=== PATIENT | female | born 1950 ===

== ENCOUNTER 2020-05-23 13:16 | Observation (INO) ==
[~2020-05-23 13:16] MED LIST: Buffered Lidocaine 1% SYRIN 1 ml INTRADERM ONE; Lactated Ringers 1000 ml BAG 1,000 ML IV SCH
[2020-05-23] MEDS ORDERED: Indomethacin 50 mg SUPP (NF) PR ONE (14:16)
[2020-05-23] MEDS ORDERED: fentaNYL 100 mcg/2 ml 50 MCG/ML VIAL ONE ×2 (15:36→16:29)
[2020-05-23] MEDS ORDERED: Rocuronium 50 mg VIAL 10 mg/ml 5 ml VIAL (50 mg) ONE (15:37)
[2020-05-23] MEDS ORDERED: Propofol 10 MG/ML 20 ML BTL ONE (16:44)
[2020-05-23] MEDS ORDERED: EPHEDrine (Pressors) 50 MG/ML VIAL ONE (16:44)
[2020-05-23] MEDS ORDERED: Lidocaine 2% PF 5 ML VIAL ONE (16:44)
[2020-05-23] MEDS ORDERED: Ondansetron 4 mg VIAL 2 MG/ML 2 ml VIAL ONE ×2 (16:44→17:43)
[2020-05-23] MEDS ORDERED: Dexamethasone IV 4 MG/ML VIAL 1 ml VIAL ONE (16:44)
[2020-05-23] MEDS ORDERED: diPHENhydraMINE IV 50 MG/ML 1 ml VIAL (BENADRYL) IV PRN (17:21)
[2020-05-23] MEDS ORDERED: fentaNYL 100 mcg/2 ml 50 MCG/ML VIAL IV PRN (17:21)
[2020-05-23] MEDS ORDERED: Labetalol IV 5 MG/ML 20 ml VIAL ONE (17:28)
[2020-05-23] MEDS ORDERED: hydrALAZINE 20 mg/ml 1 ML Vial IV IV SLOW PU PRN (17:39)
[2020-05-23] MEDS ORDERED: Ondansetron 4 mg VIAL 2 MG/ML 2 ml VIAL IV PRN ×2 (17:39→17:48)
[2020-05-23] MEDS ORDERED: hydrALAZINE 20 mg/ml 1 ML Vial IV ONE (17:43)
[2020-05-23] MEDS ORDERED: Morphine 2 MG/ML SYRINGE IV PRN (17:48)
[2020-05-23] MEDS: NS 0.9% 1000 ml BAG 1,000 ML IV SCH (21:20)
[2020-05-23 23:16] LABS: Calcium 8.7 mg/dL (8.6-10.3)
[2020-05-23 23:22] LABS: BUN/Creatinine Ratio 12.9 (8-20); EGFR African American 100.7 (>60); EGFR Non-African American 83.2 (>60)
[2020-05-23 23:38] LABS: Potassium 3.6 mmol/L (3.5-5.0)
[2020-05-24 07:23] LABS: ABS Eosinophils 0.1 10^3/ul (0-0.6); ABS Lymphocytes 1.2 10^3/ul (1.0-4.8); ABS Monocytes 0.4 10^3/ul (0-0.8); ABS Neutrophils 4.2 10^3/ul (1.5-7.7); Hematocrit 41 % (35-47); Lymphocyte % 19.4 %; Mean Corpuscular HGB Conc 34 g/dL (31-36); Mean Corpuscular Hemoglobin 30 pg (27-31); Mean Corpuscular Volume 87 fL (80-97); Mean Platelet Volume 7.4 fL (7.4-10.4); Platelet Count 262 10^3/uL (150-450); Red Blood Count 4.73 10^6 /uL (3.70-4.87); Red Cell Distribution Width 13 % (10-15); White Blood Count 5.9 10^3/uL (3.5-10.8)
[2020-05-24 07:39] LABS: Albumin 4.2 g/dL (3.2-5.2); Albumin/Globulin Ratio 1.6 (1-3); Calcium 9.3 mg/dL (8.6-10.3); EGFR Non-African American 76.8 (>60); Globulin 2.7 g/dL (2-4); Potassium 3.8 mmol/L (3.5-5.0); Total Bilirubin 0.6 mg/dL (0.2-1.0); Total Protein 6.9 g/dL (6.4-8.9)
[2020-05-24] MEDS: NS 0.9% 1000 ml BAG 1,000 ML IV SCH (08:15)
[2020-05-24 17:42] VITALS: BP 126/103
== END 2020-05-24 16:00 | disposition home or self-care (01) ==
LOC: OR 13:16 → MEDTELE 13:16
PROVIDERS: ADMIT Internal Medicine; ATTEND Internal Medicine